=== PATIENT | female | born 1990 | race Hispanic/Latino ===

== ENCOUNTER 2023-04-24 11:13 | Emergency (ER) | payer MEDICAID, SELFPAY ==
[2023-04-24 11:30] VITALS: BP 122/77; PULSE 121; RESP 18; TEMP 36.7; O2SAT 100
[2023-04-24 12:02] LABS: Strep Group A RT-PCR DETECTED (Negative)
--- NOTE | 2023-04-24 12:41 | ED.GENADULT ---
HPI - General Adult General Chief complaint: Upper Respiratory Infection Stated complaint: Strep Throat Time Seen by Provider: 04/24/23 12:33 History of Present Illness HPI narrative: 33-year-old female presenting to the emergency department for evaluation of sore throat. The patient does report associated body aches and low-grade fever. Related Data Allergies Allergy/AdvReac Type Severity Reaction Status Date / Time No Known Allergies Allergy Verified 04/24/23 11:32 Review of Systems Review of Systems: All systems reviewed & are unremarkable except as noted in HPI and below Exam Narrative: APPEARANCE: Well appearing, no pain, no distress, well-nourished. HEAD: normocephalic, atraumatic. EYES: PERRLA/EOMI, conjunctivae clear. NOSE: Normal no drainage EARS:TMS clear with good light reflex. THROAT: Pharynx clear, exudate NECK: Supple. No adenopathy, no masses. RESPIRATORY: Airway patent, respirations nonlabored. Clear to auscultation bilaterally, no rales, rhonchi, wheezing. CARDIOVASCULAR: Regular rate and rhythm without murmurs rubs or gallops. ABDOMINAL: Soft, nontender, nondistended, normal bowel sounds MUSCULOSKELETAL: Moves all extremities. Strength/ROM intact, No edema, No calf tenderness. NEURO: Alert. Cranial nerves II through XII intact. grossly intact SKIN: Warm, dry. Normal Color Course Course Emergency Course: 33-year-old female presents emergency department for evaluation of sore throat. Patient did test positive for strep and patient was treated with Augmentin and discharged home with Augmentin. All questions concerns were addressed. Patient was well-appearing at time of discharge. Vital Signs Vital signs: Vital Signs Temperature 98.1 F 04/24/23 11:30 Pulse Rate 121 H 04/24/23 11:30 Respiratory Rate 18 04/24/23 11:30 Blood Pressure 122/77 04/24/23 11:30 Pulse Oximetry 100 04/24/23 11:30 Oxygen Delivery Room Air 04/24/23 11:30 Temperature 98.1 F 04/24/23 11:30 Pulse Rate 121 H 04/24/23 11:30 Respiratory Rate 18 04/24/23 11:30 Blood Pressure 122/77 04/24/23 11:30 Pulse Oximetry 100 04/24/23 11:30 Oxygen Delivery Room Air 04/24/23 11:30 Medical Decision Making Vital Signs Vital Signs: Vital Signs Temperature 98.1 F 04/24/23 11:30 Pulse Rate 121 H 04/24/23 11:30 Respiratory Rate 18 04/24/23 11:30 Blood Pressure 122/77 04/24/23 11:30 Pulse Oximetry 100 04/24/23 11:30 Oxygen Delivery Room Air 04/24/23 11:30 Temperature 98.1 F 04/24/23 11:30 Pulse Rate 121 H 04/24/23 11:30 Respiratory Rate 18 04/24/23 11:30 Blood Pressure 122/77 04/24/23 11:30 Pulse Oximetry 100 04/24/23 11:30 Oxygen Delivery Room Air 04/24/23 11:30 Lab Data Labs: Lab Results 04/24/23 Range/Units 11:36 Group A Strep (PCR) Detected A (Negative) Discharge Plan Discharge Clinical Impression: Strep pharyngitis Patient Disposition: Home, Self-Care Condition: Stable Instructions: Antibiotic Form, Strep Throat (DC) Additional Instructions: Tylenol and ibuprofen for fever or body aches. Drink plenty of fluids. Antibiotics until completed. Have close follow-up with your primary care physician Prescriptions: New amoxicillin-pot clavulanate 875-125 mg tablet 1 tablet PO Q12H 7 Days Qty: 14 0RF Follow-up/Referrals: PHYSICIAN,TURRET LATHE OPERATOR [Non-Staff] -
[2023-04-24] MEDS: AMOXICILLIN/CLAVULANATE K 875-125 MG TAB 1 TABLET PO (12:54)
== END 2023-04-24 13:18 | disposition home or self-care (01) ==
LOC: ANHED 13:13
PROVIDERS: Emergency Medicine; Emergency Provider Emergency Medicine; PCP Internal Medicine
DX: J02.0 Streptococcal pharyngitis (principal)
CPT/HCPCS: 87651; 99283; A9270